=== PATIENT | female | born 1980 | race Caucasian/White ===

== ENCOUNTER 2016-06-19 00:22 | Emergency (ER) | payer OTHER ==
[2016-06-19 01:39] LABS: HEMOGLOBIN 14.2 gm/dl (12.3-15.3); RED BLOOD COUNT 4.7 M/UL (4.00-5.10); WHITE BLOOD COUNT 14.1 K/UL (4.5-11.0)
[2016-06-19 02:02] LABS: BUN/CREATININE RATIO 17 (0-10)
== END 2016-06-19 06:35 | disposition home or self-care (01) ==
LOC: ER1 00:22
PROVIDERS: Family Medicine
DX: R00.2 Palpitations (principal); R07.81 Pleurodynia; F17.210 Nicotine dependence, cigarettes, uncomplicated; Z86.79 Personal history of other diseases of the circulatory system; Z88.0 Allergy status to penicillin; Z88.5 Allergy status to narcotic agent; Z88.8 Allergy status to other drugs, medicaments and biological substances; Z79.899 Other long term (current) drug therapy
CPT/HCPCS: 36415; 71010; 80053; 82550; 82553; 83874; 84484; 85025; 85379; 93005; 99285

== ENCOUNTER → 2016-06-24 | Outpatient (CLI) | payer OTHER | LOC: MAMO 10:00 | DX: N63 Unspecified lump in breast (principal); R59.0 Localized enlarged lymph nodes | CPT/HCPCS: 76641-LT; 76641-RT; G0204 ==

== ENCOUNTER 2016-09-04 21:55 | Emergency (ER) | payer OTHER | END 2016-09-05 02:50 | disposition home or self-care (01) | LOC: ER1 21:55 | DX: R60.0 Localized edema (principal); Z86.79 Personal history of other diseases of the circulatory system; Z88.0 Allergy status to penicillin; Z88.5 Allergy status to narcotic agent; Z88.8 Allergy status to other drugs, medicaments and biological substances | CPT/HCPCS: 99283 ==

== ENCOUNTER → 2016-09-15 | Outpatient (CLI) | payer OTHER | LOC: EMI 09-14 16:45 | DX: M54.5 Low back pain (principal) ==

== ENCOUNTER → 2020-04-15 | Outpatient (CLI) | payer OTHER ==
[~2020-04-15] MED LIST: KEFLEX CAP 500500 MG PO; LEVAQUIN500 MG PO; MACROBID 100 M100 MG PO; PYRIDIUM200 MG PO; TESSALON PERLE100 MG PO; VENTOLIN HFA 66.7 GM INH; ZOFRAN ODT 4 MG4 MG SL
== END ==
LOC: KOH-I 13:30
DX: R22.41 Localized swelling, mass and lump, right lower limb (principal)
CPT/HCPCS: 93971

== ENCOUNTER 2020-10-11 13:56 | Emergency (ER) | payer OTHER ==
[2020-10-11 15:38] LABS: HEMOGLOBIN 13.5 gm/dl (12.3-15.3); RED BLOOD COUNT 4.46 M/UL (4.00-5.10); WHITE BLOOD COUNT 7.8 K/UL (4.5-11.0)
[2020-10-11 16:05] LABS: BUN/CREATININE RATIO 13 (0-10)
== END 2020-10-11 18:42 | disposition home or self-care (01) ==
LOC: ER1 13:56
PROVIDERS: Emergency Medicine
DX: R51.9 Headache, unspecified (principal); R07.9 Chest pain, unspecified; R53.83 Other fatigue; F17.200 Nicotine dependence, unspecified, uncomplicated; Z20.822 Contact with and (suspected) exposure to COVID-19; Z90.49 Acquired absence of other specified parts of digestive tract; Z88.0 Allergy status to penicillin; Z88.2 Allergy status to sulfonamides; Z88.8 Allergy status to other drugs, medicaments and biological substances
CPT/HCPCS: 70450; 71045; 80053; 80307; 81001; 82550; 82553; 83690; 83735; 83874; 84100; 84439; 84443; 84484; 85025; 87086; 93005; 96374; 96375; 99284; J1885; U0002

== ENCOUNTER 2021-02-02 00:51 | Emergency (ER) | payer OTHER ==
[2021-02-02 03:03] LABS: BUN/CREATININE RATIO 20 (0-10)
[2021-02-02 04:26] LABS: HEMOGLOBIN 12.9 gm/dl (12.3-15.3); RED BLOOD COUNT 4.35 M/UL (4.00-5.10); WHITE BLOOD COUNT 10.2 K/UL (4.5-11.0)
[2021-02-02] MEDS ORDERED: LODINE CAP 300300 MG PO (05:54)
[2021-02-02] MEDS ORDERED: ZOFRAN ODT 4 MG4 MG PO (05:54)
[2021-02-02] MEDS ORDERED: BENTYL 20MG TAB20 MG PO (05:54)
== END 2021-02-02 06:18 | disposition home or self-care (01) ==
LOC: ER1 00:51
PROVIDERS: Physician Assistant
DX: R10.31 Right lower quadrant pain (principal); R11.0 Nausea; I11.0 Hypertensive heart disease with heart failure; I50.9 Heart failure, unspecified; Z88.0 Allergy status to penicillin; Z88.2 Allergy status to sulfonamides; Z88.8 Allergy status to other drugs, medicaments and biological substances; F17.210 Nicotine dependence, cigarettes, uncomplicated
CPT/HCPCS: 80053; 81001; 83690; 85025; 87086; 96374; 96375; 96376; 99284; J1885; J2270; J2405; Q9967

== ENCOUNTER 2021-03-31 20:59 | Emergency (ER) | payer OTHER ==
[~2021-03-31 20:59] MED LIST changes: +BENTYL 20MG TAB20 MG PO; +LODINE CAP 300300 MG PO; +ZOFRAN ODT 4 MG4 MG PO
== END 2021-03-31 22:45 | disposition home or self-care (01) ==
LOC: ER1 20:59
DX: R10.9 Unspecified abdominal pain (principal); R11.2 Nausea with vomiting, unspecified; R10.813 Right lower quadrant abdominal tenderness; F17.210 Nicotine dependence, cigarettes, uncomplicated; Z90.49 Acquired absence of other specified parts of digestive tract
CPT/HCPCS: 99282

== ENCOUNTER → 2021-05-29 | Outpatient (CLI) | payer OTHER | LOC: HEART 5 08:55 | DX: I20.8 Other forms of angina pectoris (principal); R06.02 Shortness of breath; R00.2 Palpitations; I08.1 Rheumatic disorders of both mitral and tricuspid valves; I27.20 Pulmonary hypertension, unspecified | CPT/HCPCS: 78452; 93306; A9502; J2785 ==

== ENCOUNTER → 2021-07-08 | Outpatient (CLI) | payer OTHER ==
[~2021-07-08] MED LIST changes: +PERCOCET 5/325 T1 EA PO; +PROTONIX40 MG PO
== END ==
LOC: MAMO 15:00
DX: Z12.31 Encounter for screening mammogram for malignant neoplasm of breast (principal); Z90.710 Acquired absence of both cervix and uterus; Z80.3 Family history of malignant neoplasm of breast
CPT/HCPCS: 77063; 77067

== ENCOUNTER 2021-07-12 01:23 | Emergency (ER) | payer OTHER ==
[~2021-07-12 01:23] MED LIST changes: -PERCOCET 5/325 T1 EA PO; -PROTONIX40 MG PO
[2021-07-12 02:41] LABS: HEMOGLOBIN 14.2 gm/dl (12.3-15.3); RED BLOOD COUNT 4.64 M/UL (4.00-5.10); WHITE BLOOD COUNT 11.7 K/UL (4.5-11.0)
[2021-07-12 02:57] LABS: BUN/CREATININE RATIO 15 (0-10)
[2021-07-12] MEDS ORDERED: PERCOCET 5/325 T1 EA PO (06:11)
[2021-07-12] MEDS ORDERED: PROTONIX40 MG PO (06:19)
== END 2021-07-12 06:44 | disposition home or self-care (01) ==
LOC: ER1 01:23
PROVIDERS: Family Medicine
DX: R10.9 Unspecified abdominal pain (principal); R10.817 Generalized abdominal tenderness
CPT/HCPCS: 80053; 81001; 83690; 84703; 85025; 96374; 96375; 99284; C9113; J1885; J2405; Q9967

== ENCOUNTER 2021-11-14 00:06 | Emergency (ER) | payer OTHER ==
[~2021-11-14 00:06] MED LIST changes: +PERCOCET 5/325 T1 EA PO; +PROTONIX40 MG PO
== END 2021-11-14 01:00 | disposition left against medical advice (07) ==
LOC: ER1 00:06
DX: R07.9 Chest pain, unspecified (principal)
CPT/HCPCS: 71045; 93005; 99281

== ENCOUNTER 2021-11-22 07:12 | Emergency (ER) | payer OTHER ==
[2021-11-22 08:16] LABS: HEMOGLOBIN 13.7 gm/dl (12.3-15.3); RED BLOOD COUNT 4.53 M/UL (4.00-5.10); WHITE BLOOD COUNT 10.9 K/UL (4.5-11.0)
[2021-11-22 08:35] LABS: BUN/CREATININE RATIO 12 (0-10)
[2021-11-22] MEDS ORDERED: REGLAN5 MG PO (09:58)
[2021-11-22] MEDS ORDERED: K-TAB ER20 MEQ PO (09:59)
== END 2021-11-22 11:45 | disposition home or self-care (01) ==
LOC: ER1 07:12
PROVIDERS: Physician Assistant
DX: K83.8 Other specified diseases of biliary tract (principal); E87.6 Hypokalemia; F17.210 Nicotine dependence, cigarettes, uncomplicated; Z88.0 Allergy status to penicillin; Z88.1 Allergy status to other antibiotic agents; Z79.899 Other long term (current) drug therapy; Z98.84 Bariatric surgery status; Z20.822 Contact with and (suspected) exposure to COVID-19
CPT/HCPCS: 0240U; 80053; 81001; 82550; 82553; 83690; 84484; 84703; 85025; 87077; 87086; 87186; 93005; 99284; Q9967

== ENCOUNTER 2021-11-27 10:11 | Observation (INO) | payer OTHER ==
[~2021-11-27] VITALS: Ht 170.2 cm; Wt 106.6 kg
[~2021-11-27 10:11] MED LIST changes: +K-TAB ER20 MEQ PO; +REGLAN5 MG PO
[2021-11-27 10:56] LABS: BUN/CREATININE RATIO 14 (0-10)
[2021-11-27 12:21] LABS: HEMOGLOBIN 13.6 gm/dl (12.3-15.3); RED BLOOD COUNT 4.41 M/UL (4.00-5.10); WHITE BLOOD COUNT 7.6 K/UL (4.5-11.0)
[2021-11-27] MEDS ORDERED: OMEPRAZOLE20 MG PO (14:19)
[2021-11-27] MEDS ORDERED: GABAPENTIN400 MG PO (14:20)
[2021-11-27] MEDS ORDERED: ONDANSETRON HCL4 MG PO (14:20)
[2021-11-27] MEDS ORDERED: PROZAC10 MG PO (14:22)
[2021-11-27] MEDS ORDERED: FENTANYL1 EACH TD (14:22)
[2021-11-27] MEDS ORDERED: AMITIZA8 MCG PO (14:22)
[2021-11-27] MEDS ORDERED: OXYCODONE HCL20 MG PO (14:23)
--- NOTE | 2021-11-27 16:50 | NUR ---
PT C/O PAIN UNCHANGED WITH PRN MEDICATION. MD CALLED, NO ANSWER, WILL CONTINUE TO ATTEMPT CONTACT.
[2021-11-28 06:22] LABS: HEMOGLOBIN 12.3 gm/dl (12.3-15.3); RED BLOOD COUNT 4.09 M/UL (4.00-5.10); WHITE BLOOD COUNT 6.4 K/UL (4.5-11.0)
[2021-11-28 06:59] LABS: BUN/CREATININE RATIO 13 (0-10)
--- NOTE | 2021-11-28 14:16 | NUR ---
PT LEAVES AMA AT THIS TIME. PT REFUSES TO SIGN AMA FORM. IV SITES REMOVED, DRESSING APPLIED. BOO ALDRICH AND WOOL SHEARING SUPERVISOR MADE AWARE. CLAUDIO HOLLOWAY.
== END 2021-11-28 14:30 | disposition other institution (70) ==
LOC: ER1 10:11 → MED SURG 4 12:29 → CDU 12:29 → MED SURG 4 14:54
PROVIDERS: Nurse Practitioner; Physician Assistant; ADMIT Internal Medicine
DX: N39.0 Urinary tract infection, site not specified (principal); B96.89 Other specified bacterial agents as the cause of diseases classified elsewhere; F17.210 Nicotine dependence, cigarettes, uncomplicated; Z86.39 Personal history of other endocrine, nutritional and metabolic disease; Z88.0 Allergy status to penicillin; Z88.2 Allergy status to sulfonamides; Z88.8 Allergy status to other drugs, medicaments and biological substances; Z53.29 Procedure and treatment not carried out because of patient's decision for other reasons
CPT/HCPCS: 36415; 80053; 81001; 83605; 83690; 83735; 85025; 86140; 87040; 87077; 87086; 87186; 96374; 96375; 96376; 99285; C9113; G0378; J1170; J1650; J2185; J2270; J2405; Q9967